=== PATIENT | female | born 1975 | race African-American/Black ===

== ENCOUNTER → 2017-11-28 | Emergency (ER) | payer OTHER ==
[~2017-11-28] VITALS: Ht 167.6 cm; Wt 54.4 kg
[~2017-11-28] MED LIST: CLEOCIN HCL300 MG PO; ULTRAM50 MG PO
== END | disposition home or self-care (01) ==
LOC: ER 02:59
DX: K08.89 Other specified disorders of teeth and supporting structures (principal)